=== PATIENT | female | born 1945 | race Caucasian/White ===

== ENCOUNTER 2018-03-29 22:43 | Emergency (ER) | payer OTHER ==
[~2018-03-29] VITALS: Ht 170.2 cm; Wt 86.2 kg
[2018-03-29] MEDS ORDERED: COZAAR 25 MG TA25 M1 PO (22:52)
[2018-03-29] MEDS ORDERED: MIRALAX17 GM PO (22:53)
[2018-03-29] MEDS ORDERED: FISH OIL 1,001000 M2 PO (22:53)
[2018-03-29] MEDS ORDERED: MAGOX 400400 MG PO (22:53)
[2018-03-29] MEDS ORDERED: OMEPRAZOLE 20 M20 M1 PO (22:53)
[2018-03-29] MEDS ORDERED: POTASSIUM20 PO (22:54)
[2018-03-29] MEDS ORDERED: PHENERGAN12.5 M2 RECTAL (22:54)
[2018-03-29] MEDS ORDERED: LASIX 40 MG TAB40 M2 PO (22:55)
[2018-03-29] MEDS ORDERED: REQUIP0.5 MG PO (22:55)
[2018-03-29] MEDS ORDERED: VITAMIN E400 UNIT PO (22:55)
[2018-03-29] MEDS ORDERED: B12INJ IM (22:56)
[2018-03-29] MEDS ORDERED: ASPERCREME1 EACH TOP (22:56)
[2018-03-29] MEDS ORDERED: GABAPENTIN 100100 MG PO (22:57)
[2018-03-29] MEDS ORDERED: OXYCODONE HCL10 MG PO (22:57)
[2018-03-29] MEDS ORDERED: CARDIZEM CD240 MG PO (22:58)
[2018-03-29] MEDS ORDERED: LIPITOR 20 MG T20 M1 (22:58)
[2018-03-29] MEDS ORDERED: COLACE100 MG PO (22:59)
[2018-03-29] MEDS ORDERED: FLORASTOR250 MG PO (22:59)
[2018-03-29] MEDS ORDERED: FOSAMAX 70 MG T70 MG PO (23:00)
[2018-03-29] MEDS ORDERED: XARELTO20 MG PO (23:00)
[2018-03-29] MEDS ORDERED: AUGMENTIN 500-1 EACH PO (23:01)
[2018-03-30] MEDS ORDERED: PERCOCET PO ×2 (00:32→00:36)
[2018-03-30 01:05] VITALS: BP 153/85
[2018-03-30] MEDS ORDERED: FLEXERIL PO (22:27)
== END 2018-03-30 01:05 | disposition home or self-care (01) ==
LOC: M.ERS 22:43
DX: S16.1XXA Strain of muscle, fascia and tendon at neck level, initial encounter (principal); S70.11XA Contusion of right thigh, initial encounter; S09.8XXA Other specified injuries of head, initial encounter; M53.3 Sacrococcygeal disorders, not elsewhere classified; I10 Essential (primary) hypertension; I48.91 Unspecified atrial fibrillation; Z88.8 Allergy status to other drugs, medicaments and biological substances; W01.0XXA Fall on same level from slipping, tripping and stumbling without subsequent striking against object, initial encounter; Y93.89 Activity, other specified; Y92.128 Other place in nursing home as the place of occurrence of the external cause; Y99.8 Other external cause status

== ENCOUNTER 2018-03-30 20:54 | Emergency (ER) | payer OTHER ==
[~2018-03-30] VITALS: Ht 170.2 cm; Wt 90.4 kg
[~2018-03-30 20:54] MED LIST: ASPERCREME1 EACH TOP; AUGMENTIN 500-1 EACH PO; B12INJ IM; CARDIZEM CD240 MG PO; COLACE100 MG PO; COZAAR 25 MG TA25 M1 PO; FISH OIL 1,001000 M2 PO; FLORASTOR250 MG PO; FOSAMAX 70 MG T70 MG PO; GABAPENTIN 100100 MG PO; LASIX 40 MG TAB40 M2 PO; LIPITOR 20 MG T20 M1; MAGOX 400400 MG PO; MIRALAX17 GM PO; OMEPRAZOLE 20 M20 M1 PO; OXYCODONE HCL10 MG PO; PERCOCET PO; PHENERGAN12.5 M2 RECTAL; POTASSIUM20 PO; REQUIP0.5 MG PO; VITAMIN E400 UNIT PO; XARELTO20 MG PO
[2018-03-30] MEDS ORDERED: FLEXERIL PO (22:27)
[2018-03-30 22:48] VITALS: BP 155/83
== END 2018-03-30 22:48 | disposition home or self-care (01) ==
LOC: M.ERS 20:54
DX: S39.012A Strain of muscle, fascia and tendon of lower back, initial encounter (principal); S00.03XA Contusion of scalp, initial encounter; I10 Essential (primary) hypertension; I48.91 Unspecified atrial fibrillation; W18.39XA Other fall on same level, initial encounter; Y93.89 Activity, other specified; Y92.89 Other specified places as the place of occurrence of the external cause; Y99.8 Other external cause status

== ENCOUNTER 2018-04-10 07:35 | Emergency (ER) | payer OTHER ==
[~2018-04-10] VITALS: Ht 170.2 cm; Wt 84.8 kg
[~2018-04-10 07:35] MED LIST changes: +FLEXERIL PO
[2018-04-10] MEDS ORDERED: JUVEN PACKET1 EAC1 PO (07:49)
[2018-04-10] MEDS ORDERED: SEROQUEL 25 MG25 M1 PO (07:50)
[2018-04-10 07:57] LABS: HEMATOCRIT 36.1 % (37.0-47.0); HEMOGLOBIN 11.7 gm/dL (12.0-15.0); MCH 29.3 pg (26.0-34.0); POLYS 60.6 %
[2018-04-10 07:59] LABS: ABSOLUTE EOSINOPHILS 0.2 thou/uL (0.0-0.7); ABSOLUTE MONOCYTES 0.7 thou/uL (0.0-1.2); ABSOLUTE NEUTROPHILS 2.9 thou/uL (1.6-8.1); BASOPHILS 0.6 %; EOSINOPHILS 3.8 %; MCHC 32.3 g/dL (28.0-37.0); MCV 90.6 fL (80.0-100.0); MPV 7.7 fl. (7.2-11.1); NUCLEATED RBCS 0 /100WBC; PLATELET COUNT* 388 thou/uL (150-400); RBC 3.99 mil/uL (4.20-5.00); RDW-CV 14.7 % (10.5-14.5); WBC 4.8 thou/uL (4.0-11.0)
[2018-04-10 08:10] LABS: CALCIUM 9.2 mg/dL (8.5-10.1); CREATININE 0.8 mg/dL (0.6-1.3); INR 1.3; POTASSIUM 3.6 mmol/L (3.5-5.1); PROTIME 13.1 Seconds (9.20-11.50)
[2018-04-10 08:15] LABS: ALBUMIN 2.9 g/dL (3.4-5.0); TOTAL BILIRUBIN 0.4 mg/dL (<0.1-1.0); TOTAL PROTEIN 6.5 g/dL (6.4-8.2)
[2018-04-10 08:54] VITALS: BP 137/69
== END 2018-04-10 08:54 | disposition home or self-care (01) ==
LOC: M.ERS 07:35
PROVIDERS: Family Medicine
DX: M25.551 Pain in right hip (principal); I10 Essential (primary) hypertension; I48.91 Unspecified atrial fibrillation

== ENCOUNTER 2018-12-13 14:21 | Emergency (ER) | payer OTHER ==
[~2018-12-13] VITALS: Ht 170.2 cm; Wt 74.4 kg
[~2018-12-13 14:21] MED LIST changes: +JUVEN PACKET1 EAC1 PO; +SEROQUEL 25 MG25 M1 PO
[2018-12-13] MEDS ORDERED: NUCYNTA50 MG PO (14:37)
[2018-12-13] MEDS ORDERED: VITAMIN D32000 UNIT PO (14:37)
[2018-12-13 15:47] LABS: HEMATOCRIT 38.2 % (37.0-47.0); HEMOGLOBIN 12.7 gm/dL (12.0-15.0); MCH 28.3 pg (26.0-34.0); MCHC 33.1 g/dL (28.0-37.0); MCV 85.4 fL (80.0-100.0); MPV 7.6 fl. (7.2-11.1); NUCLEATED RBCS 0 /100WBC; PLATELET COUNT* 305 thou/uL (150-400); RBC 4.48 mil/uL (4.20-5.00); RDW-CV 15.4 % (10.5-14.5); WBC 6.3 thou/uL (4.0-11.0)
[2018-12-13 15:53] LABS: ANION GAP 11 mmol/L (7-16); BUN 18 mg/dL (7-18); CALCIUM 8.8 mg/dL (8.5-10.1); CHLORIDE 106 mmol/L (98-107); CO2 24 mmol/L (21-32); CREATININE 0.6 mg/dL (0.6-1.3); GLUCOSE 134 mg/dL (70-99); POTASSIUM 3.2 mmol/L (3.5-5.1); SODIUM 141 mmol/L (136-145)
[2018-12-13 16:02] LABS: ALBUMIN 3.4 g/dL (3.4-5.0); ALKALINE PHOSPHATASE 99 U/L (46-116); LIPASE 146 U/L (73-393); SGOT 22 U/L (15-37); SGPT 22 U/L (30-65); TOTAL BILIRUBIN 0.5 mg/dL (<0.1-1.0); TOTAL PROTEIN 6.8 g/dL (6.4-8.2); TROPONIN-I LEVEL <0.06 ng/mL (<0.06)
[2018-12-13] MEDS ORDERED: ZOFRAN ODT4 MG PO (16:21)
[2018-12-13 16:26] LABS: ABSOLUTE LYMPHOCYTES 0.1 thou/uL (0.8-5.3); ABSOLUTE MONOCYTES 0.5 thou/uL (0.0-1.2); ABSOLUTE NEUTROPHILS 5.7 thou/uL (1.6-8.1); PLATELET ESTIMATE ADEQUATE
[2018-12-13 16:44] VITALS: BP 146/77
--- NOTE | 2018-12-14 15:37 | EKG ---
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: Keven SANTOS : 1945 Requested By: Trisha Bateman Order Number: [id number] MD: Vickey Carr Measurements Intervals [place] Rate: 101 P: SD: QRS: -17 QRSD: 102 T: 95 QT: 301 QTc: 391 Interpretive Statements Atrial fibrillation Ventricular premature complex Borderline left axis deviation Borderline repolarization abnormality No previous ECG available for comparison Electronically Signed On 12-14-2018 15:37:30 CDT by Vickey Carr [email or web address] <ELECTRONICALLY SIGNED> By: Vickey Carr MD, [facility] 12/14/18 1537 D: 068 142 Vickey Carr MD, FACC /EPI
== END 2018-12-13 16:45 | disposition home or self-care (01) ==
LOC: M.ERS 14:21
PROVIDERS: Nurse Practitioner Family
DX: R11.2 Nausea with vomiting, unspecified (principal); R19.7 Diarrhea, unspecified; E87.6 Hypokalemia; I10 Essential (primary) hypertension; I48.91 Unspecified atrial fibrillation

== ENCOUNTER 2019-06-05 06:37 | Observation (INO) | payer OTHER ==
[~2019-06-05] VITALS: Ht 170.2 cm; Wt 89.8 kg
[~2019-06-05 06:37] MED LIST changes: +NUCYNTA50 MG PO; +REQUIP 0.25 M0.25 MG PO; -REQUIP0.5 MG PO; +VITAMIN D32000 UNIT PO; +ZOFRAN ODT4 MG PO
[2019-06-05 06:38] VITALS: BP 131/80
[2019-06-05] MEDS ORDERED: ELIQUIS5 MG PO (06:52)
[2019-06-05] MEDS ORDERED: CALCIUM500 MG PO (06:53)
--- NOTE | 2019-06-05 06:59 | NUR ---
THIS NURSE RECEIVED REPORT FROM MONICA QUIROZ. THIS NURSE TO ASSUME PT CARE AT THIS TIME.
[2019-06-05 07:15] LABS: HEMOGLOBIN 7.9 gm/dL (12.0-15.0); NUCLEATED RBCS 0 /100WBC
[2019-06-05 07:16] LABS: HEMATOCRIT 25.5 % (37.0-47.0); MCH 20.9 pg (26.0-34.0); MCHC 31.1 g/dL (28.0-37.0); MCV 67.1 fL (80.0-100.0); PLATELET COUNT* 363 thou/uL (150-400); RDW-CV 19.4 % (10.5-14.5); WBC 7.7 thou/uL (4.0-11.0)
[2019-06-05 07:24] LABS: CALCIUM 8.9 mg/dL (8.5-10.1); CREATININE 0.8 mg/dL (0.6-1.3); POTASSIUM 3.7 mmol/L (3.5-5.1)
[2019-06-05 07:28] LABS: APTT 25.7 Seconds (25.0-31.3); INR 1.1; PROTIME 10.8 Seconds (9.20-11.50)
[2019-06-05 07:34] LABS: ALBUMIN 3.5 g/dL (3.4-5.0); TOTAL BILIRUBIN 0.4 mg/dL (<0.1-1.0)
[2019-06-05 08:04] LABS: ABSOLUTE LYMPHOCYTES 1.1 thou/uL (0.8-5.3); ABSOLUTE NEUTROPHILS 5.6 thou/uL (1.6-8.1); PLATELET ESTIMATE ADEQUATE
[2019-06-05 08:05] LABS: ANISOCYTOSIS 1+; HYPOCHROMASIA 3+; MICROCYTES 3+; POIKILOCYTOSIS 1+
[2019-06-05 08:12] LABS: INFLUENZA A ANTIGEN Negative (Negative); INFLUENZA B ANTIGEN Negative (Negative)
[2019-06-05 08:14] LABS: TARGET CELLS Occasional
--- NOTE | 2019-06-05 08:39 | NUR ---
REPORT GIVEN TO MONICA ARENAS WHO IS TO ASSUME PT CARE INPATIENT NURSE.
[2019-06-05 08:40] VITALS: BP 141/59
--- NOTE | 2019-06-05 08:50 | NUR ---
ADMIT TO 214 TELEPHONE REPORT GIVEN PRIOR TO ARRIVAL PATIENT TO VIA CART SETTLED IN ORIENTED TO AND CALL LIGHT DENIES PAIN
[2019-06-05 09:00] VITALS: BP 139/78
[2019-06-05] MEDS ORDERED: FISH OIL 1,0001 EAC9 PO (09:23)
[2019-06-05] MEDS ORDERED: DILTIAZEM ER180 M2 PO (09:24)
[2019-06-05 10:22] LABS: % SATURATION 3 % (20-39); IRON 13 ug/dL (50-175)
--- NOTE | 2019-06-05 10:22 | EKG ---
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: [place] : 1945 Requested By: Vahe Fernandez Order Number: [id number] MD: Rodger Pond Measurements Intervals [place] Rate: 88 P: [place]: QRS: 12 QRSD: 104 T: 31 QT: 360 QTc: 436 Interpretive Statements Atrial fibrillation Compared to ECG 12/13/2018 14:28:46 Ventricular premature complex(es) no longer present Electronically Signed On 06-05-2019 10:21:51 HAND MITER OPERATOR by Rodger Pond [email or web address] <ELECTRONICALLY SIGNED> By: Rodger Pond MD, [facility] 06/05/19 1021 Rodger Pond MD, [facility] /EPI
[2019-06-05 10:29] LABS: URINE BILIRUBIN NEGATIVE (Negative); URINE BLOOD NEGATIVE (Negative); URINE CLARITY CLEAR; URINE COLOR STRAW; URINE GLUCOSE-RANDOM NEGATIVE (Negative); URINE KETONES NEGATIVE (Negative); URINE LEUKOCYTES-REFLEX NEGATIVE (Negative); URINE NITRITE-REFLEX NEGATIVE (Negative); URINE PROTEIN NEGATIVE (Negative); URINE SPECIFIC GRAVITY <= 1.005 (1.005-1.030); URINE UROBILINOGEN 0.2 E.U./dl (0.2-1.0)
[2019-06-05 13:44] VITALS: BP 131/64
[2019-06-05 17:27] VITALS: BP 131/64
[2019-06-05 20:00] VITALS: BP 138/67
[2019-06-06] VITALS: BP 141/77
--- NOTE | 2019-06-06 01:37 | NUR ---
PT ALERT ORIENTED. PT STATED PAIN IN CHEST AND RIBS FROM COUGHING SO MUCH. PAIN ALSO IN HEAD. PT STATED, "I HAVEN'T HAD ANY SLEEP FOR THE PAST FEW NIGHTS BC OF COUGHING. DR COLLINS NOTIFIED. ORDER FOR PAIN MEDICATION AND COUGH MEDICATION OBTAINED AND GIVEN. TELEMETRY SHOWS AFIB 90S. PT RESTING QUIETLY IN CHAIR. TM
[2019-06-06 04:00] VITALS: BP 140/73
[2019-06-06 04:42] LABS: HEMATOCRIT 24.8 % (37.0-47.0); HEMOGLOBIN 7.7 gm/dL (12.0-15.0); MCH 20.5 pg (26.0-34.0); MCHC 30.9 g/dL (28.0-37.0); MCV 66.3 fL (80.0-100.0); MPV 7.2 fl. (7.2-11.1); RBC 3.74 mil/uL (4.20-5.00); RDW-CV 19.3 % (10.5-14.5); WBC 4.6 thou/uL (4.0-11.0)
[2019-06-06 05:05] LABS: CALCIUM 8.3 mg/dL (8.5-10.1); CREATININE 0.7 mg/dL (0.6-1.3)
--- NOTE | 2019-06-06 07:25 | NUR ---
CHANGE OF SHIFT, BEDSIDE REPORT GIVEN PATIENT SEEN IN BED ASLEEP ASSUMED PATIENT CARE
[2019-06-06 08:00] VITALS: BP 142/75
[2019-06-06] MEDS ORDERED: MEDROL DOSPAK21 TA1 PO (10:45)
[2019-06-06] MEDS ORDERED: FEOSOL325 M1 PO (10:45)
[2019-06-06 11:30] VITALS: BP 140/71
[2019-06-06] MEDS ORDERED: PROAIR HFA8.5 GM INH (12:15)
[2019-06-06] MEDS ORDERED: CEFDINIR300 MG PO (12:15)
[2019-06-06 16:00] VITALS: BP 134/67
--- NOTE | 2019-06-06 19:00 | NUR ---
patient status change ms transferred to [facility] rm 107 report given to jazmyne vargas patient assisted via [facility] good condition with personal belongings family notified of rm change
[2019-06-06 20:00] VITALS: BP 154/79
--- NOTE | 2019-06-07 02:27 | NUR ---
PT HAS SLEPT WELL WITHOUT COMPLAINTS SINCE ARRIVING TO FLOOR. UP IN RECLINER FOR COMFORT, CHAIR ALARM ON FOR SAFETY. ABLE TO USE CALL LITE AND MAKE NEEDS KNOWN. UP WITH SBA AND CANE TO BR TO VOID WITHOUT DIFFICULTY. ROOM AIR SAT 97%. OCC CLAIM CLERK COUGH HEARD. RT TX GIVEN ORDERED. LFA SL. ANTICIPATING DISCHARGE HOME TOMORROW. REPORT GIVEN TO SUSANNE ANDERSON WHO WILL ASSUME CARE AT THIS TIME.
[2019-06-07 04:06] LABS: BASOPHILS 0.1 %; HEMOGLOBIN 7.6 gm/dL (12.0-15.0); NUCLEATED RBCS 1 /100WBC
[2019-06-07 04:09] LABS: ABSOLUTE LYMPHOCYTES 0.1 thou/uL (0.8-5.3); ABSOLUTE MONOCYTES 0.6 thou/uL (0.0-1.2); ABSOLUTE NEUTROPHILS 5.6 thou/uL (1.6-8.1); HEMATOCRIT 24.8 % (37.0-47.0); LYMPHOCYTES 2.3 %; MCH 20.5 pg (26.0-34.0); MCHC 30.7 g/dL (28.0-37.0); MCV 66.9 fL (80.0-100.0); MONOCYTES 9.4 %; MPV 7.2 fl. (7.2-11.1); PLATELET COUNT* 375 thou/uL (150-400); POLYS 88.2 %; RBC 3.71 mil/uL (4.20-5.00); RDW-CV 19.8 % (10.5-14.5); WBC 6.3 thou/uL (4.0-11.0)
[2019-06-07 07:30] VITALS: BP 121/69
[2019-06-07 10:15] VITALS: BP 121/69
--- NOTE | 2019-06-07 14:43 | NUR ---
PT DISCHARGED TO HOME AT 1430 WITH AND NURSING STAFF BY CAB. IV OUT. PT STABLE. SCRIPTS E FAXED TO PHARMACY. PERSONAL BELONGINGS SENT WITH PT.
--- NOTE | 2019-06-07 16:46 | 2DMMODE ---
[place] [address] 2 D/M-MODE ECHOCARDIOGRAM Name: JANIEDGARDALEXANDREAALFREDITO Jimmy Room: [address] Alvarado Weber#: [id number] Admission: 06/05/19 Attend Phys: Vale Berg, Discharge: 06/07/19 Date of : 43 Date of Service: 06/07/19 1646 Report #: [id number] THIS REPORT FOR: //name// APPROVED REPORT Study performed: 06/07/2019 10:00:08 EXAM: Comprehensive 2D, Doppler, and color-flow Echocardiogram Patient Location: In-Patient Room #: [facility] Status: routine BSA: 2.01 HR: 99 bpm BP: 121/69 mmHg Rhythm: Atrial Fibrillation Other Information Study Quality: Good Indications Dyspnea 2D Dimensions IVSd: 15.02 (7-11mm) LVOT Diam: 20.14 (18-24mm) LVDd: 45.46 mm PWd: 12.06 (7-11mm) Ascending Ao: 36.17 (22-36mm) LVDs: 28.94 (25-40mm) Aortic Root: 36.26 mm Volumes Left Atrial Volume (Systole) LA ESV Index: 62.60 mL/m2 Aortic Valve AoV Peak Yannick.: 1.57 m/s AO Peak Gr.: 9.87 mmHg LVOT Max P.04 mmHg AO Mean Gr.: 5.83 mmHg LVOT Mean P.37 mmHg LVOT Max V: 1.00 m/s AO V2 VTI: 30.87 cm LVOT Mean V: 0.73 m/s BARBARA (VTI): 2.18 cm2 LVOT V1 VTI: 21.13 cm Mitral Valve MV Decel. Time: 170.00 ms MV PHT: 49.30 ms MVA (PHT): 4.46 [place] [address] 2 D/M-MODE ECHOCARDIOGRAM Name: JANIALFREDITO MCCLAIN Jimmy [address]: [address]#: [id number] Admission: 06/05/19 Attend Phys: Vale Berg, Discharge: 06/07/19 Date of : 43 Date of Service: 06/07/19 1646 Report #: [id number] TDI Medial E' Yannick.: 0.14 m/s Lateral E' Yannick.: 0.17 m/s Pulmonary Valve PV Peak Yannick.: 0.93 m/s PV Peak Gr.: 3.45 mmHg Tricuspid Valve RAP Estimate: 5.00 mmHg TR Peak Gr.: 36.55 mmHg RVSP: 41.00 mmHg PA Pressure: 41.00 mmHg Left Ventricle The left ventricle is normal size. There is normal LV segmental wall motion. There is normal left ventricular wall thickness. Left ventricular systolic function is normal. The left ventricular ejection fraction is within the normal range. LVEF is 60%. This study is not technically sufficient to allow evaluation of the LV diastolic function due to atrial fibrillation. Right Ventricle The right ventricle is normal size. The right ventricular systolic function is normal. Atria Left atrium is moderately dilated. Right atrium is mildly dilated. Aortic Valve Mild aortic valve sclerosis. No aortic regurgitation is present. There is no aortic valvular stenosis. Mitral Valve The mitral valve is normal in structure. Mild mitral regurgitation. No evidence of mitral valve stenosis. Tricuspid Valve The tricuspid valve is normal in structure. Trace tricuspid regurgitation Mild pulmonary hypertension. Pulmonic Valve The pulmonary valve is normal in structure. Trace pulmonic regurgitation[place] [address] 2 D/M-MODE ECHOCARDIOGRAM Name: JANIEDGARDALEXANDREAALFREDITO Jimmy Room: [address]#: [id number] Admission: 06/05/19 Attend Phys: Vale Berg, Discharge: 06/07/19 Date of : 43 Date of Service: 06/07/19 1646 Report #: [id number] The aortic root is normal in size. IVC is normal in size and collapses >50% with inspiration. Pericardium There is no pericardial effusion. <Conclusion> The left ventricle is normal size. There is normal left ventricular wall thickness. Left ventricular systolic function is normal. The left ventricular ejection fraction is within the normal range. LVEF is 60%. This study is not technically sufficient to allow evaluation of the LV diastolic function due to atrial fibrillation. The right ventricle is normal size. Left atrium is moderately dilated. Right atrium is mildly dilated. Mild aortic valve sclerosis. No aortic regurgitation is present. There is no aortic valvular stenosis. The mitral valve is normal in structure. Mild mitral regurgitation. The tricuspid valve is normal in structure. Trace tricuspid regurgitation Mild pulmonary hypertension. IVC is normal in size and collapses >50% with inspiration. There is no pericardial effusion. There is normal LV segmental wall motion. <ELECTRONICALLY SIGNED> By: Vickey Carr MD, FACC 06/07/19 164 45 45 Vickey Carr MD, FACC /INF
[2019-06-07] MEDS ORDERED: IPRAT-ALBUT 0.5-3 ML INH (20:39)
== END 2019-06-07 15:06 | disposition home or self-care (01) ==
LOC: M.ERS 06:37 → M.TBA-ER 07:53 → M.2W 07:53 → M.ORTHSURG 07:53 → M.2W 08:47 → M.ORTHSURG 06-06 19:00
PROVIDERS: Emergency Medicine; Family Medicine; ADMIT Internal Medicine
DX: J80 Acute respiratory distress syndrome (principal); I48.20 Chronic atrial fibrillation, unspecified; D50.9 Iron deficiency anemia, unspecified; E87.6 Hypokalemia; I10 Essential (primary) hypertension; R79.89 Other specified abnormal findings of blood chemistry; J98.01 Acute bronchospasm; Z79.01 Long term (current) use of anticoagulants

== ENCOUNTER → 2019-07-26 | Outpatient (CLI) | payer MEDICARE ==
[~2019-07-26] MED LIST changes: +CALCIUM500 MG PO; +CEFDINIR300 MG PO; +DILTIAZEM ER180 M2 PO; +ELIQUIS5 MG PO; +FEOSOL325 M1 PO; +FISH OIL 1,0001 EAC9 PO; +IPRAT-ALBUT 0.5-3 ML INH; +MEDROL DOSPAK21 TA1 PO; +PROAIR HFA8.5 GM INH
== END ==
LOC: M.WC 07:22
DX: S01.01XA Laceration without foreign body of scalp, initial encounter (principal); S01.80XA Unspecified open wound of other part of head, initial encounter; E78.00 Pure hypercholesterolemia, unspecified; I10 Essential (primary) hypertension; I48.91 Unspecified atrial fibrillation; Z96.612 Presence of left artificial shoulder joint; W19.XXXA Unspecified fall, initial encounter; Y93.89 Activity, other specified; Y92.89 Other specified places as the place of occurrence of the external cause; Y99.8 Other external cause status

== ENCOUNTER → 2019-08-02 | Outpatient (CLI) | payer MEDICARE | LOC: M.WC 01:54 | DX: S01.01XD Laceration without foreign body of scalp, subsequent encounter (principal); E78.00 Pure hypercholesterolemia, unspecified; I10 Essential (primary) hypertension; Z96.612 Presence of left artificial shoulder joint; I48.91 Unspecified atrial fibrillation; W19.XXXD Unspecified fall, subsequent encounter ==

== ENCOUNTER → 2019-08-09 | Outpatient (CLI) | payer MEDICARE | LOC: M.WC 02:19 | DX: S01.01XD Laceration without foreign body of scalp, subsequent encounter (principal); E78.00 Pure hypercholesterolemia, unspecified; I10 Essential (primary) hypertension; I48.91 Unspecified atrial fibrillation; Z96.612 Presence of left artificial shoulder joint; W19.XXXD Unspecified fall, subsequent encounter ==

== ENCOUNTER → 2019-08-16 | Outpatient (CLI) | payer MEDICARE | LOC: M.WC 01:08 | DX: S01.01XD Laceration without foreign body of scalp, subsequent encounter (principal); E78.00 Pure hypercholesterolemia, unspecified; I10 Essential (primary) hypertension; I48.91 Unspecified atrial fibrillation; Z96.612 Presence of left artificial shoulder joint; W19.XXXD Unspecified fall, subsequent encounter ==

== ENCOUNTER 2019-11-12 08:31 | Emergency (ER) | payer MEDICARE ==
[~2019-11-12] VITALS: Ht 170.2 cm; Wt 81.7 kg
[2019-11-12 09:55] VITALS: BP 144/77
== END 2019-11-12 10:05 | disposition home or self-care (01) ==
LOC: M.ERS 08:31
DX: R60.0 Localized edema (principal); I10 Essential (primary) hypertension; I48.91 Unspecified atrial fibrillation

== ENCOUNTER → 2019-12-14 | Outpatient (CLI) | payer MEDICARE ==
[~2019-12-14] MED LIST changes: +NORFLEX100 MG PO; +OXYCODONE HCL 55 MG PO; +PAIN RELIEVER500 MG PO; -VITAMIN D32000 UNIT PO; +VITAMIN D325 MCG PO; +Vitamin D3 PO
== END ==
LOC: M.MRI 06:52
PROVIDERS: ATTEND Orthopaedic Surgery
DX: M84.452A Pathological fracture, left femur, initial encounter for fracture (principal)

== ENCOUNTER 2019-12-18 19:52 | Inpatient (IN) | payer MEDICARE ==
[~2019-12-18] VITALS: Ht 170.2 cm; Wt 96.3 kg
[~2019-12-18 19:52] MED LIST changes: -NORFLEX100 MG PO; -OXYCODONE HCL 55 MG PO; -PAIN RELIEVER500 MG PO; -VITAMIN D325 MCG PO
[2019-12-18 20:05] VITALS: BP 142/83
[2019-12-18 20:25] LABS: ABSOLUTE EOSINOPHILS 0.1 thou/uL (0.0-0.7); ABSOLUTE LYMPHOCYTES 1.2 thou/uL (0.8-5.3); ABSOLUTE NEUTROPHILS 3.4 thou/uL (1.6-8.1); BASOPHILS 0.6 %; EOSINOPHILS 1.6 %; HEMATOCRIT 38.9 % (37.0-47.0); HEMOGLOBIN 12.9 gm/dL (12.0-15.0); LYMPHOCYTES 20.1 %; MCH 31.4 pg (26.0-34.0); MCHC 33.2 g/dL (28.0-37.0); MCV 94.7 fL (80.0-100.0); MONOCYTES 18.2 %; MPV 7.5 fl. (7.2-11.1); NUCLEATED RBCS 0 /100WBC; PLATELET COUNT* 340 thou/uL (150-400); POLYS 59.5 %; RBC 4.11 mil/uL (4.20-5.00); RDW-CV 14.9 % (10.5-14.5); WBC 5.7 thou/uL (4.0-11.0)
[2019-12-18 20:33] LABS: PROTIME 10.5 Seconds (9.20-11.50)
[2019-12-18 20:35] LABS: CALCIUM 8.9 mg/dL (8.5-10.1); POTASSIUM 3.8 mmol/L (3.5-5.1)
[2019-12-18 20:39] LABS: ALBUMIN 3.3 g/dL (3.4-5.0); TOTAL BILIRUBIN 0.2 mg/dL (<0.1-1.0)
[2019-12-18 21:15] LABS: URINE BILIRUBIN NEGATIVE (Negative); URINE BLOOD NEGATIVE (Negative); URINE CLARITY CLEAR; URINE COLOR YELLOW; URINE GLUCOSE-RANDOM NEGATIVE (Negative); URINE KETONES NEGATIVE (Negative); URINE LEUKOCYTES-REFLEX TRACE (Negative); URINE NITRITE-REFLEX NEGATIVE (Negative); URINE PROTEIN NEGATIVE (Negative); URINE SPECIFIC GRAVITY 1.025 (1.005-1.030); URINE UROBILINOGEN 0.2 E.U./dl (0.2-1.0)
[2019-12-18 21:30] LABS: SQUAMOUS 0-3 Few /LPF (0-3)
[2019-12-18 21:31] LABS: BACTERIA-REFLEX None Seen /HPF (None Seen); CASTS None Seen /LPF (None Seen); CRYSTALS None Seen /LPF (None Seen); URINE RBC None Seen /HPF (0-2); URINE WBC-REFLEX 0-5 Rare /HPF (0-5)
[2019-12-18 22:00] VITALS: BP 118/71
[2019-12-18 23:00] VITALS: BP 140/62
[2019-12-19 08:35] VITALS: BP 153/61
--- NOTE | 2019-12-19 10:23 | EKG ---
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: [place] : 1945 Requested By: Tiffanie Cornejo Order Number: [id number] MD: Eleazar Parker Measurements Intervals [place] Rate: 83 P: CT: QRS: -9 QRSD: 109 T: 36 QT: 410 QTc: 482 Interpretive Statements Atrial fibrillation Low voltage, extremity and precordial leads Compared to ECG 06/05/2019 06:40:25 Low QRS voltage now present Electronically Signed On 12-19-2019 10:22:20 CDT by Eleazar Parker [email or web address] <ELECTRONICALLY SIGNED> By: Ryan Parker MD, [facility] 12/19/191021 58 58 Ryan Parker MD, [facility] /EPI
[2019-12-19 10:56] VITALS: BP 153/61
[2019-12-19 19:23] VITALS: BP 139/74
[2019-12-19 20:30] VITALS: BP 126/60
[2019-12-20] VITALS: BP 130/64
[2019-12-20 07:56] VITALS: BP 118/69
[2019-12-20 09:24] LABS: HEMATOCRIT 30.9 % (37.0-47.0); MCH 31.6 pg (26.0-34.0); MCHC 33.6 g/dL (28.0-37.0); MCV 93.9 fL (80.0-100.0); MPV 7.8 fl. (7.2-11.1); RBC 3.28 mil/uL (4.20-5.00); RDW-CV 15.2 % (10.5-14.5); WBC 9.3 thou/uL (4.0-11.0)
[2019-12-20 09:27] LABS: HEMOGLOBIN 10.4 gm/dL (12.0-15.0)
[2019-12-20 09:39] LABS: ALBUMIN 2.7 g/dL (3.4-5.0); CALCIUM 8.2 mg/dL (8.5-10.1); CREATININE 1.3 mg/dL (0.6-1.3); MAGNESIUM 1.8 mg/dL (1.8-2.4); POTASSIUM 4.8 mmol/L (3.5-5.1); TOTAL BILIRUBIN 0.6 mg/dL (<0.1-1.0); TOTAL PROTEIN 5.8 g/dL (6.4-8.2)
[2019-12-20 20:30] VITALS: BP 93/45
[2019-12-21] VITALS (9 sets, daily range): BP systolic 100–127; BP diastolic 40–68
[2019-12-21 02:07] LABS: HEMATOCRIT 33.8 % (37.0-47.0); HEMOGLOBIN 11.1 gm/dL (12.0-15.0); MCH 31.9 pg (26.0-34.0); MCHC 32.8 g/dL (28.0-37.0); MCV 97.1 fL (80.0-100.0); MPV 7.8 fl. (7.2-11.1); RBC 3.48 mil/uL (4.20-5.00); RDW-CV 14.9 % (10.5-14.5); WBC 11.5 thou/uL (4.0-11.0)
[2019-12-21 02:20] LABS: CALCIUM 8.9 mg/dL (8.5-10.1); POTASSIUM 5.2 mmol/L (3.5-5.1)
[2019-12-21 02:21] LABS: CREATININE 2.5 mg/dL (0.6-1.3)
[2019-12-21 02:25] LABS: ALBUMIN 2.9 g/dL (3.4-5.0); TOTAL BILIRUBIN 0.4 mg/dL (<0.1-1.0); TOTAL PROTEIN 6.5 g/dL (6.4-8.2)
[2019-12-21 02:42] LABS: APTT 32.4 Seconds (25.0-31.3); INR 1.1; PROTIME 11.2 Seconds (9.20-11.50)
[2019-12-21 08:45] LABS: CALCIUM 8.6 mg/dL (8.5-10.1); CREATININE 2.3 mg/dL (0.6-1.3); POTASSIUM 5.2 mmol/L (3.5-5.1)
[2019-12-21 09:16] LABS: BE -4.1 mmol/L (-2 to +3); PO2 98.6 mmHg (75.0-100.0)
[2019-12-21 09:20] LABS: PCO2 58.1 mmHg (35.0-45.0); pH 7.231 (7.340-7.450)
[2019-12-22] VITALS: BP 121/65
[2019-12-22 03:55] LABS: BE -1.7 mmol/L (-2 to +3); PCO2 44.7 mmHg (35.0-45.0); PO2 96.6 mmHg (75.0-100.0); pH 7.349 (7.340-7.450)
[2019-12-22 04:00] VITALS: BP 121/76
[2019-12-22 05:49] LABS: ABSOLUTE EOSINOPHILS 0.1 thou/uL (0.0-0.7); ABSOLUTE LYMPHOCYTES 0.6 thou/uL (0.8-5.3); ABSOLUTE MONOCYTES 1.2 thou/uL (0.0-1.2); BASOPHILS 0.4 %; EOSINOPHILS 1.8 %; HEMATOCRIT 26.5 % (37.0-47.0); LYMPHOCYTES 9.9 %; MCH 32.1 pg (26.0-34.0); MCHC 33.3 g/dL (28.0-37.0); MCV 96.5 fL (80.0-100.0); MONOCYTES 19.6 %; MPV 7.8 fl. (7.2-11.1); NUCLEATED RBCS 0 /100WBC; POLYS 68.3 %; RBC 2.75 mil/uL (4.20-5.00); WBC 5.9 thou/uL (4.0-11.0)
[2019-12-22 05:59] LABS: HEMOGLOBIN 8.8 gm/dL (12.0-15.0); PLATELET COUNT* 220 thou/uL (150-400)
[2019-12-22 06:08] LABS: ALBUMIN 2.2 g/dL (3.4-5.0); CALCIUM 8.2 mg/dL (8.5-10.1); TOTAL BILIRUBIN 0.4 mg/dL (<0.1-1.0); TOTAL PROTEIN 5.1 g/dL (6.4-8.2)
[2019-12-22 06:13] LABS: CREATININE 1.2 mg/dL (0.6-1.3); POTASSIUM 4.2 mmol/L (3.5-5.1)
[2019-12-22 08:51] VITALS: BP 157/99
[2019-12-22 12:31] VITALS: BP 130/64
[2019-12-23 09:23] VITALS: BP 131/72
[2019-12-23 12:00] VITALS: BP 101/56
[2019-12-23 15:49] VITALS: BP 159/65
--- NOTE | 2019-12-23 16:26 | OP ---
[address] [place] [address] OPERATIVE REPORT Name: ALFREDITO CARR Room: [address] IN .R.#: [id number] Admission: 12/18/19 Attend Phys: Hillary Palomino Discharge: Date of : 43 Report #: [id number] THIS REPORT FOR: //name// cc: Sandy Yanez MD, Pamela MD ~ THIS REPORT FOR: //name// CC: Hillary Walker DICTATED BY: Jacob Morrison DO DATE OF SERVICE: 12/19/2019 PREOPERATIVE DIAGNOSIS: Left femur pathologic subtrochanteric fracture, displaced. POSTOPERATIVE DIAGNOSIS: Left femur pathologic subtrochanteric fracture, displaced. PROCEDURE PERFORMED: Open reduction and intramedullary fixation of left femur subtrochanteric fracture. SURGEON: Thomas Pickard DO FOAM CASTER: Jacob Morrison DO SECOND ELECTRIC METER REPAIRER HELPER: Jonathan Espinal DO THIRD ELECTRIC METER REPAIRER HELPER: Prince Yanez DO ANESTHESIA: General. ESTIMATED BLOOD LOSS: 200 mL. COMPLICATIONS: None. DISPOSITION: Stable to PACU. ORTHOPEDIC IMPLANTS: [employer] gamma 3 cephalomedullary nail system with the following components: 1. Size 11 x 360 mm x 125 degree long nail. 2. A 95-mm lag screw. 3. Distal interlocking screw. INDICATIONS FOR PROCEDURE: The patient is a pleasant 74-year-old female who is [address] [place] [address] OPERATIVE REPORT Name: ALFREDITO CARR Room: [address] IN ..#: [id number] Admission: 12/18/19 Attend Phys: Hillary Palomino Discharge: Date of : 43 Report #: [id number] known to our practice who presented to the Emergency Department on 12/19/2019 with injury to the left thigh. She felt a pop in her hip and subsequently sustained a fall. She immediately noted severe pain and was unable to ambulate. She was brought to the ER by EMS. X-rays were obtained, which demonstrated a pathologic proximal femur fracture. It is noteworthy that the patient was previously seen for this condition and was scheduled for prophylactic nail fixation. In the interim, she was instructed to maintain a nonweightbearing status in order to protect the femur and prevent pathologic fracture. The patient does have a long history of bisphosphonate use and had a subtrochanteric cortical thickening, which is a known possibility with bisphosphonate use. We discussed further treatment options with the patient and recommended surgical fixation. Risks, benefits, complications and alternatives were discussed with the patient in detail. Risks include but not limited to continued pain, bleeding, DVT/PE, infection, nonunion, malunion, complications of anesthesia and even . The patient expressed understanding and wished to proceed. DESCRIPTION OF PROCEDURE: The patient was transferred to the operating suite and placed on the operating table in supine position. She was given benefit of general anesthesia. Left hip was then prepped and draped in the usual sterile fashion. Timeout was taken to confirm the appropriate patient identification, operative site and procedure to be performed. All in the room were in agreement with the timeout. Procedure began by performing a skin incision at the lateral femur overlying the fracture site. A combination of a ball spike pusher as well as a bone hook were used to perform a manual reduction of the fracture. A scalpel was then used to perform an incision just proximal to the tip of the greater trochanter. A guide pin was then inserted at the tip of the greater trochanter in the usual position. C-arm fluoroscopy was used to confirm appropriate pin position as well as adequate reduction of her fracture. The opening reamer was then used to open the cortex of the proximal greater trochanter. The ball-tipped guidewire was then passed under fluoroscopy to the appropriate position and the distal femur. The appropriate length of nail was measured. The femoral canal was then sequentially reamed. The intramedullary nail was then passed along the guidewire. During all these processes, the reduction was held manually with the bone hook and ball spike pusher. Once the nail was passed to the appropriate position, C-arm images were obtained, which showed a good reduction of her fracture site and good positioning of our nail. The guide was then positioned for a lag screw. A guide pin was drilled into the femoral neck and into the femoral head. C-arm images were obtained, which demonstrated appropriate position of the guide pin in the femoral neck and femoral head. The path of our lag screw was then reamed over the guide pin. The lag screw was then measured. Final lag screw was then placed into position. The distal interlocking screw was then positioned using perfect circles technique. It was measured to an appropriate length and the final screw was placed. Final images were obtained, which demonstrated maintained anatomic reduction of her fracture as well as appropriate positioning of our orthopedic hardware. The wounds were thoroughly irrigated. The IT band at both the [address] [place] [address] OPERATIVE REPORT Name: ALFREDITO CARR Room: 231-P ADM IN M.R.#: [id number] Admission: 12/18/19 Attend Phys: Hillary Palomino Discharge: Date of : 43 Report #: [id number] proximal incisions was closed using a #1 Vicryl. Subcutaneous tissue was then closed using 2-0 Vicryl. Skin closure was performed using lupillo. Sterile dressings were applied. The patient was transferred to PACU in stable condition. <ELECTRONICALLY SIGNED> By: Thomas Pickard DO 12/23/19 1626 1732 [id number] Pickard DO /nt
[2019-12-23 20:10] VITALS: BP 132/82
[2019-12-24] VITALS (7 sets, daily range): BP systolic 113–163; BP diastolic 71–92
[2019-12-24 05:34] LABS: CALCIUM 8.3 mg/dL (8.5-10.1); CREATININE 0.6 mg/dL (0.6-1.3); POTASSIUM 4.3 mmol/L (3.5-5.1)
[2019-12-24 05:35] LABS: HEMATOCRIT 27.6 % (37.0-47.0); HEMOGLOBIN 9.4 gm/dL (12.0-15.0); MCH 32.2 pg (26.0-34.0); MCV 94.6 fL (80.0-100.0); MPV 7.6 fl. (7.2-11.1); NUCLEATED RBCS 0 /100WBC; PLATELET COUNT* 288 thou/uL (150-400); RBC 2.92 mil/uL (4.20-5.00); RDW-CV 14.7 % (10.5-14.5); WBC 5.2 thou/uL (4.0-11.0)
[2019-12-24 06:56] LABS: ABSOLUTE EOSINOPHILS 0.2 thou/uL (0.0-0.7); ABSOLUTE LYMPHOCYTES 0.8 thou/uL (0.8-5.3); ABSOLUTE MONOCYTES 0.9 thou/uL (0.0-1.2); ABSOLUTE NEUTROPHILS 3.3 thou/uL (1.6-8.1); PLATELET ESTIMATE ADEQUATE
[2019-12-24 06:57] LABS: ANISOCYTOSIS 1+; POIKILOCYTOSIS 1+
[2019-12-25 03:48] VITALS: BP 148/82
[2019-12-25] MEDS ORDERED: OXYCODONE HCL 55 MG PO (10:57)
[2019-12-25 12:00] VITALS: BP 155/79
[2019-12-25 15:48] VITALS: BP 123/60
[2019-12-25 20:00] VITALS: BP 151/81
[2019-12-26] VITALS: BP 141/86
[2019-12-26 04:00] VITALS: BP 147/84
[2019-12-26 08:00] VITALS: BP 151/86
[2019-12-26 13:49] VITALS: BP 152/80
[2019-12-26 17:34] VITALS: BP 148/80
[2019-12-26 20:00] VITALS: BP 120/88
[2019-12-27 00:11] VITALS: BP 151/88
[2019-12-27 04:30] VITALS: BP 143/75
[2019-12-27 08:00] VITALS: BP 144/85
[2019-12-27 11:30] VITALS: BP 131/62
[2019-12-27 16:00] VITALS: BP 108/48
[2019-12-27 19:40] VITALS: BP 125/64
[2019-12-28 00:26] VITALS: BP 138/77
[2019-12-28 04:00] VITALS: BP 99/72
[2019-12-28 08:59] VITALS: BP 140/58
[2019-12-28 11:54] VITALS: BP 110/51
[2019-12-29] VITALS: BP 125/67
[2019-12-29 04:00] VITALS: BP 141/76
[2019-12-29 07:30] VITALS: BP 141/82
[2019-12-29 12:00] VITALS: BP 115/58
[2019-12-29 16:00] VITALS: BP 134/65
[2019-12-29 20:20] VITALS: BP 144/68
[2019-12-30 07:40] VITALS: BP 133/76
[2019-12-30 20:50] VITALS: BP 154/73
[2019-12-31 04:30] LABS: ABSOLUTE BASOPHILS 0.1 thou/uL (0.0-0.2); ABSOLUTE EOSINOPHILS 0.2 thou/uL (0.0-0.7); ABSOLUTE LYMPHOCYTES 1.2 thou/uL (0.8-5.3); ABSOLUTE NEUTROPHILS 4.7 thou/uL (1.6-8.1); BASOPHILS 0.7 %; HEMATOCRIT 28.6 % (37.0-47.0); HEMOGLOBIN 9.6 gm/dL (12.0-15.0); LYMPHOCYTES 16.3 %; MCH 31.7 pg (26.0-34.0); MCHC 33.5 g/dL (28.0-37.0); MCV 94.4 fL (80.0-100.0); MONOCYTES 13.7 %; MPV 7.5 fl. (7.2-11.1); NUCLEATED RBCS 0 /100WBC; PLATELET COUNT* 438 thou/uL (150-400); POLYS 66.3 %; RBC 3.03 mil/uL (4.20-5.00); RDW-CV 15.5 % (10.5-14.5); WBC 7.2 thou/uL (4.0-11.0)
[2019-12-31 04:56] LABS: CALCIUM 8.3 mg/dL (8.5-10.1); CREATININE 0.7 mg/dL (0.6-1.3); POTASSIUM 3.9 mmol/L (3.5-5.1)
[2019-12-31 08:38] VITALS: BP 130/72
[2019-12-31 15:54] VITALS: BP 133/68
[2019-12-31 20:20] VITALS: BP 144/77
[2020-01-01 08:00] VITALS: BP 134/70
[2020-01-01 16:00] VITALS: BP 136/71
[2020-01-01 19:30] VITALS: BP 111/65
[2020-01-02 08:00] VITALS: BP 142/75
[2020-01-02 16:22] VITALS: BP 111/63
[2020-01-02 20:00] VITALS: BP 127/65
[2020-01-03 07:26] VITALS: BP 151/78
[2020-01-03 17:08] VITALS: BP 99/52
[2020-01-03 20:10] VITALS: BP 138/72
[2020-01-04 07:36] VITALS: BP 138/75
[2020-01-04 17:32] VITALS: BP 134/67
[2020-01-04 20:00] VITALS: BP 137/74
[2020-01-05] VITALS: BP 151/74
[2020-01-05 05:23] LABS: ABSOLUTE BASOPHILS 0.1 thou/uL (0.0-0.2); ABSOLUTE EOSINOPHILS 0.2 thou/uL (0.0-0.7); ABSOLUTE LYMPHOCYTES 1.4 thou/uL (0.8-5.3); ABSOLUTE MONOCYTES 0.6 thou/uL (0.0-1.2); ABSOLUTE NEUTROPHILS 2.6 thou/uL (1.6-8.1); BASOPHILS 1.4 %; HEMOGLOBIN 10.5 gm/dL (12.0-15.0); LYMPHOCYTES 27.8 %; MCH 30.8 pg (26.0-34.0); MCHC 32.9 g/dL (28.0-37.0); MCV 93.6 fL (80.0-100.0); MONOCYTES 12.3 %; MPV 7.1 fl. (7.2-11.1); NUCLEATED RBCS 0 /100WBC; PLATELET COUNT* 615 thou/uL (150-400); POLYS 53.5 %; RBC 3.42 mil/uL (4.20-5.00); RDW-CV 15.3 % (10.5-14.5); WBC 4.9 thou/uL (4.0-11.0)
[2020-01-05 05:34] LABS: ALBUMIN 2.5 g/dL (3.4-5.0); CALCIUM 8.4 mg/dL (8.5-10.1); CREATININE 0.7 mg/dL (0.6-1.3); POTASSIUM 3.9 mmol/L (3.5-5.1); TOTAL BILIRUBIN 0.4 mg/dL (<0.1-1.0); TOTAL PROTEIN 5.9 g/dL (6.4-8.2)
[2020-01-05 09:32] VITALS: BP 123/69
[2020-01-05 16:00] VITALS: BP 136/80
[2020-01-05 20:00] VITALS: BP 138/69
[2020-01-06 20:01] VITALS: BP 145/79
[2020-01-07 07:50] VITALS: BP 105/66
[2020-01-07 20:41] VITALS: BP 144/79
[2020-01-08 07:40] VITALS: BP 145/78
[2020-01-08 15:26] VITALS: BP 119/62
[2020-01-08 19:30] VITALS: BP 145/70
[2020-01-09 07:30] VITALS: BP 147/83
[2020-01-09 08:08] VITALS: BP 193/62
[2020-01-09 15:48] VITALS: BP 143/78
[2020-01-09 20:00] VITALS: BP 152/83
[2020-01-10 08:06] VITALS: BP 145/84
[2020-01-10 16:30] VITALS: BP 155/79
[2020-01-11] VITALS: BP 140/79
[2020-01-11 09:00] VITALS: BP 129/55
[2020-01-11 11:16] VITALS: BP 129/55
[2020-01-11 13:13] VITALS: BP 129/55
[2020-01-11] MEDS ORDERED: NORFLEX100 MG PO (13:15)
[2020-01-11] MEDS ORDERED: OXYCODONE HCL 55 MG PO (13:15)
[2020-01-11] MEDS ORDERED: PAIN RELIEVER500 MG PO (13:15)
[2020-01-11] MEDS ORDERED: VITAMIN D325 MCG PO (13:15)
[2020-01-11 13:27] VITALS: BP 129/55
== END 2020-01-11 16:35 | disposition home health service (06) | DRG 480 ==
LOC: M.ERS 19:52 → M.ORTHSURG 20:58 → M.2W 20:58 → M.TBA-ER 20:58 → M.3W 22:16 → M.ORTHSURG 12-19 13:48 → M.2W 12-21 12:21 → M.ORTHSURG 12-29 17:46
PROVIDERS: Emergency Medicine; Internal Medicine; Nurse Practitioner; ADMIT Family Medicine; ATTEND Family Medicine
PROC: 0QS706Z Reposition Left Upper Femur with Intramedullary Internal Fixation Device, Open Approach (ICD-10-PCS; 2019-12-19)
PROC: 5A09357 Assistance with Respiratory Ventilation, Less than 24 Consecutive Hours, Continuous Positive Airway Pressure (ICD-10-PCS; principal; 2019-12-21)
PROC: 5A09357 Assistance with Respiratory Ventilation, Less than 24 Consecutive Hours, Continuous Positive Airway Pressure (ICD-10-PCS; 2019-12-22)
DX: M80.052A Age-related osteoporosis with current pathological fracture, left femur, initial encounter for fracture (principal); J96.01 Acute respiratory failure with hypoxia; J96.02 Acute respiratory failure with hypercapnia; J69.0 Pneumonitis due to inhalation of food and vomit; N17.9 Acute kidney failure, unspecified; D68.59 Other primary thrombophilia; E87.5 Hyperkalemia; I10 Essential (primary) hypertension; E66.9 Obesity, unspecified; I48.91 Unspecified atrial fibrillation; Z79.899 Other long term (current) drug therapy; Z79.01 Long term (current) use of anticoagulants; Z68.33 Body mass index [BMI] 33.0-33.9, adult

== ENCOUNTER 2020-09-15 12:48 | Inpatient (IN) | payer MEDICARE ==
[~2020-09-15] VITALS: Ht 170.2 cm; Wt 97.1 kg
[~2020-09-15 12:48] MED LIST changes: +NORFLEX100 MG PO; +OXYCODONE HCL 55 MG PO; +PAIN RELIEVER500 MG PO; +VITAMIN D325 MCG PO
[2020-09-15 12:55] VITALS: BP 156/76
[2020-09-15 13:28] LABS: ABSOLUTE EOSINOPHILS 0.1 thou/uL (0.0-0.7); ABSOLUTE LYMPHOCYTES 0.9 thou/uL (0.8-5.3); ABSOLUTE MONOCYTES 0.5 thou/uL (0.0-1.2); ABSOLUTE NEUTROPHILS 3.3 thou/uL (1.6-8.1); BASOPHILS 0.8 %; EOSINOPHILS 1.6 %; HEMOGLOBIN 10.3 gm/dL (12.0-15.0); LYMPHOCYTES 18.6 %; MCH 22.5 pg (26.0-34.0); MCHC 31.2 g/dL (28.0-37.0); MCV 72.3 fL (80.0-100.0); MONOCYTES 10.7 %; MPV 6.8 fl. (7.2-11.1); NUCLEATED RBCS 0 /100WBC; PLATELET COUNT* 352 thou/uL (150-400); POLYS 68.3 %; RBC 4.56 mil/uL (4.20-5.00); WBC 4.9 thou/uL (4.0-11.0)
[2020-09-15 13:34] LABS: CALCIUM 9.3 mg/dL (8.5-10.1)
[2020-09-15 13:37] LABS: APTT 28.6 Seconds (25.0-31.3); INR 1.1; PROTIME 11.2 Seconds (9.20-11.50)
[2020-09-15 13:45] LABS: ALBUMIN 3.7 g/dL (3.4-5.0); TOTAL BILIRUBIN 0.5 mg/dL (<0.1-1.0); TOTAL PROTEIN 7.4 g/dL (6.4-8.2)
[2020-09-15 14:10] LABS: ANISOCYTOSIS 1+; HYPOCHROMASIA 1+; MICROCYTES 1+; PLATELET ESTIMATE ADEQUATE
--- NOTE | 2020-09-15 15:16 | EKG ---
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
[2020-09-15 16:36] VITALS: BP 145/76
--- NOTE | 2020-09-15 17:18 | 2DMMODE ---
[place] [address] 2 D/M-MODE ECHOCARDIOGRAM Name: JANIALFREDITO MCCLAIN Jimmy Room: [address] IN .R.#: [id number] Admission: 09/15/20 Attend Phys: Vale Berg, Discharge: Date of : 43 Date of Service: 09/15/20 1718 Report #: [id number] THIS REPORT FOR: cc: Sandy Yanez MD, Pamela MD Holkins,Vickey Goldsmith MD [facility] ~ APPROVED REPORT Study performed: 09/15/2020 16:17:38 EXAM: Comprehensive 2D, Doppler, and color-flow Echocardiogram Patient Location: In-Patient Room #: ER Status: routine BSA: 2.08 HR: 82 bpm BP: 141/65 mmHg Rhythm: NSR Other Information Study Quality: Good Indications Congestive Heart Failure 2D Dimensions IVSd: 13.33 (7-11mm) LVOT Diam: 21.65 (18-24mm) LVDd: 45.11 mm PWd: 11.32 (7-11mm) Ascending Ao: 35.89 (22-36mm) LVDs: 28.92 (25-40mm) Aortic Root: 35.10 mm Volumes Left Atrial Volume (Systole) LA ESV Index: 58.20 mL/m2 Aortic Valve AoV Peak Yannick.: 1.83 m/s AO Peak Gr.: 13.33 mmHg LVOT Max P.02 mmHg AO Mean Gr.: 7.60 mmHg LVOT Mean P.19 mmHg LVOT Max V: 1.00 m/s AO V2 VTI: 37.22 cm LVOT Mean V: 0.69 m/s BARBARA (VTI): 2.37 cm2 LVOT V1 VTI: 23.97 [place] [address] 2 D/M-MODE ECHOCARDIOGRAM Name: ALFREDITO CARR Room: [address] IN ..#: [id number] Admission: 09/15/20 Attend Phys: Vale Berg, Discharge: Date of : 43 Date of Service: 09/15/20 1718 Report #: [id number] TDI Lateral E' Yannick.: 0.15 m/s Pulmonary Valve PV Peak Yannick.: 0.99 m/s PV Peak Gr.: 3.95 mmHg Tricuspid Valve RAP Estimate: 5.00 mmHg TR Peak Gr.: 45.66 mmHg RVSP: 50.00 mmHg PA Pressure: 50.00 mmHg Left Ventricle The left ventricle is normal size. There is normal LV segmental wall motion. There is normal left ventricular wall thickness. Left ventricular systolic function is normal. The left ventricular ejection fraction is within the normal range. LVEF is 60%. This study is not technically sufficient to allow evaluation of the LV diastolic function due to atrial fibrillation. Right Ventricle The right ventricle is normal size. The right ventricular systolic function is normal. Atria Left atrium is moderately dilated. The right atrium size is normal. Aortic Valve Mild aortic valve sclerosis. No aortic regurgitation is present. No hemodynamically significant valvular aortic stenosis. Mitral Valve Mild mitral annular calcification. Mild mitral regurgitation. No evidence of mitral valve stenosis. Tricuspid Valve The tricuspid valve is normal in structure. Mild tricuspid regurgitation. Moderate pulmonary hypertension. Pulmonic Valve The pulmonary valve is normal in structure. Mild pulmonic regurgitation. Great Vessels The aortic root is normal in size. IVC is normal in size and collapses >50% [place] [address] 2 D/M-MODE ECHOCARDIOGRAM Name: ALFREDITO CARR Room: [address]#: [id number] Admission: 09/15/20 Attend Phys: Vale Berg, Discharge: Date of : 43 Date of Service: 09/15/20 1718 Report #: [id number] Pericardium There is no pericardial effusion. <Conclusion> The left ventricle is normal size. There is normal left ventricular wall thickness. Left ventricular systolic function is normal. The left ventricular ejection fraction is within the normal range. LVEF is 60%. This study is not technically sufficient to allow evaluation of the LV diastolic function due to atrial fibrillation. The right ventricle is normal size. Left atrium is moderately dilated. The right atrium size is normal. Mild aortic valve sclerosis. No aortic regurgitation is present. No hemodynamically significant valvular aortic stenosis. Mild mitral annular calcification. Mild mitral regurgitation. The tricuspid valve is normal in structure. Mild tricuspid regurgitation. Moderate pulmonary hypertension. IVC is normal in size and collapses >50% with inspiration. There is no pericardial effusion. There is normal LV segmental wall motion. <ELECTRONICALLY SIGNED> By: Vickey Carr MD, FACC 09/15/208 17 17 Vickey Carr MD, FACC /INF
[2020-09-15 18:17] VITALS: BP 161/76
[2020-09-15 20:00] VITALS: BP 166/54
[2020-09-16 00:38] VITALS: BP 140/50
[2020-09-16 04:06] VITALS: BP 148/63
[2020-09-16 08:00] VITALS: BP 145/79
[2020-09-16 08:40] LABS: HEMATOCRIT 31.6 % (37.0-47.0); HEMOGLOBIN 9.8 gm/dL (12.0-15.0); MCH 22.3 pg (26.0-34.0); MCV 71.8 fL (80.0-100.0); MPV 7.1 fl. (7.2-11.1); RBC 4.41 mil/uL (4.20-5.00); RDW-CV 19.6 % (10.5-14.5); WBC 2.2 thou/uL (4.0-11.0)
[2020-09-16 09:05] LABS: ALBUMIN 3.6 g/dL (3.4-5.0); CALCIUM 8.7 mg/dL (8.5-10.1); CREATININE 0.9 mg/dL (0.6-1.3); MAGNESIUM 1.8 mg/dL (1.8-2.4); POTASSIUM 3.4 mmol/L (3.5-5.1); TOTAL BILIRUBIN 0.5 mg/dL (<0.1-1.0); TOTAL PROTEIN 7.2 g/dL (6.4-8.2)
[2020-09-16 12:00] VITALS: BP 119/59
[2020-09-16 16:00] VITALS: BP 119/63
[2020-09-16 21:00] VITALS: BP 134/71
[2020-09-17] VITALS: BP 140/76
[2020-09-17 04:51] VITALS: BP 134/77
[2020-09-17 06:22] LABS: HEMATOCRIT 28.9 % (37.0-47.0); HEMOGLOBIN 9.1 gm/dL (12.0-15.0); MCH 23.1 pg (26.0-34.0); MCHC 31.4 g/dL (28.0-37.0); MCV 73.6 fL (80.0-100.0); RBC 3.93 mil/uL (4.20-5.00); RDW-CV 19.2 % (10.5-14.5); WBC 6.7 thou/uL (4.0-11.0)
[2020-09-17 06:31] LABS: CREATININE 0.8 mg/dL (0.6-1.3); MAGNESIUM 1.8 mg/dL (1.8-2.4); POTASSIUM 3.6 mmol/L (3.5-5.1)
[2020-09-17 08:00] VITALS: BP 136/68
[2020-09-17] MEDS ORDERED: DILTIAZEM 24HR180 M1 PO (08:37)
[2020-09-17] MEDS ORDERED: REQUIP 0.25 M0.25 MG PO (08:37)
[2020-09-17] MEDS ORDERED: LEVOFLOXACIN500 MG PO (08:37)
[2020-09-17] MEDS ORDERED: GLUCOPHAGE500 MG PO (08:37)
[2020-09-17] MEDS ORDERED: SINEMET 10-1001 EAC1 PO (08:37)
[2020-09-17] MEDS ORDERED: LASIX 40 MG TAB40 M1 PO (09:56)
[2020-09-17 11:23] VITALS: BP 136/68
[2020-09-17 12:00] VITALS: BP 139/76
== END 2020-09-17 16:19 | disposition home or self-care (01) | DRG 177 ==
LOC: M.ERS 12:48 → M.TBA-ER 14:56 → M.2W 14:56
PROVIDERS: Family Medicine; ADMIT Internal Medicine; ATTEND Internal Medicine
DX: J15.6 Pneumonia due to other Gram-negative bacteria (principal); J96.01 Acute respiratory failure with hypoxia; I50.33 Acute on chronic diastolic (congestive) heart failure; I48.20 Chronic atrial fibrillation, unspecified; D68.69 Other thrombophilia; G25.81 Restless legs syndrome; I11.0 Hypertensive heart disease with heart failure; M81.0 Age-related osteoporosis without current pathological fracture; E78.5 Hyperlipidemia, unspecified; I48.0 Paroxysmal atrial fibrillation; E11.65 Type 2 diabetes mellitus with hyperglycemia; I27.20 Pulmonary hypertension, unspecified; Z20.822 Contact with and (suspected) exposure to COVID-19; Z79.01 Long term (current) use of anticoagulants; Z79.899 Other long term (current) drug therapy

== ENCOUNTER 2020-10-23 16:07 | Emergency (ER) | payer MEDICARE ==
[~2020-10-23] VITALS: Ht 170.2 cm; Wt 84.8 kg
[~2020-10-23 16:07] MED LIST changes: +DILTIAZEM 24HR180 M1 PO; +GLUCOPHAGE500 MG PO; +LASIX 40 MG TAB40 M1 PO; +LEVOFLOXACIN500 MG PO; +SINEMET 10-1001 EAC1 PO
[2020-10-23 17:07] LABS: CALCIUM 9.4 mg/dL (8.5-10.1); CREATININE 0.9 mg/dL (0.6-1.3); POTASSIUM 3.6 mmol/L (3.5-5.1)
[2020-10-23] MEDS ORDERED: FLEXERIL PO (17:49)
[2020-10-23] MEDS ORDERED: DIPHENHIST50 MG PO (17:49)
[2020-10-23 18:01] VITALS: BP 171/75
== END 2020-10-23 18:03 | disposition home or self-care (01) ==
LOC: M.ERS 16:07
PROVIDERS: Emergency Medicine Emergency Medical Services
DX: G25.81 Restless legs syndrome (principal); I10 Essential (primary) hypertension; I48.91 Unspecified atrial fibrillation

== ENCOUNTER → 2021-07-23 | Outpatient (CLI) | payer MEDICARE ==
[~2021-07-23] MED LIST changes: +DIPHENHIST50 MG PO
--- NOTE | 2021-07-23 10:46 | 2DMMODE ---
[place] [address] 2 D/M-MODE ECHOCARDIOGRAM Name: ALFREDITO CARR Room: [facility]#: [id number] Admission: 07/23/21 Attend Phys: Alena Valdez RN Discharge: Date of : 43 Date of Service: 07/23/21 1045 Report #: [id number] THIS REPORT FOR: cc: Sandy Yanez MD, Pamela MD Blick, David R. MD [facility] ~ APPROVED REPORT Study performed: 07/23/2021 10:51:34 EXAM: Comprehensive 2D, Doppler, and color-flow Echocardiogram Patient Location: Out-Patient BSA: 1.96 HR: 59 bpm BP: 135/72 mmHg Rhythm: Atrial Fibrillation Other Information Study Quality: Good Indications Murmur 2D Dimensions IVSd: 13.31 (7-11mm) LVOT Diam: 20.36 (18-24mm) LVDd: 44.13 mm PWd: 10.46 (7-11mm) Ascending Ao: 30.54 (22-36mm) LVDs: 30.70 (25-40mm) Aortic Root: 32.69 mm Volumes Left Atrial Volume (Systole) LA ESV Index: 38.90 mL/m2 Aortic Valve AoV Peak Yannick.: 1.98 m/s AO Peak Gr.: 15.75 mmHg LVOT Max P.00 mmHg AO Mean Gr.: 8.78 mmHg LVOT Mean P.50 mmHg LVOT Max V: 1.12 m/s AO V2 VTI: 36.91 cm LVOT Mean V: 0.73 m/s BARBARA (VTI): 2.28 cm2 LVOT V1 VTI: 25.88 [place] [address] 2 D/M-MODE ECHOCARDIOGRAM Name: ALFREDITO CARR Room: [facility]#: [id number] Admission: 07/23/21 Attend Phys: Alena Valdez RN Discharge: Date of : 43 Date of Service: 07/23/21 1045 Report #: [id number] MV Decel. Time: 190.62 ms MV E Max Yannick.: 1.13 m/s MV PHT: 55.28 ms MVA (PHT): 3.98 cm2 TDI E/Lateral E': 8.69 E/Medial E': 7.53 Medial E' Yannick.: 0.15 m/s Lateral E' Yannick.: 0.13 m/s Pulmonary Valve PV Peak Yannick.: 0.90 m/s PV Peak Gr.: 3.25 mmHg Tricuspid Valve RAP Estimate: 5.00 mmHg TR Peak Gr.: 49.87 mmHg RVSP: 54.87 mmHg PA Pressure: 54.87 mmHg Left Ventricle The left ventricle is normal size. There is normal LV segmental wall motion. There is normal left ventricular wall thickness. Left ventricular systolic function is normal. The left ventricular ejection fraction is within the normal range. LVEF is 60-65%. This study is not technically sufficient to allow evaluation of the LV diastolic function due to atrial fibrillation. Right Ventricle The right ventricle is normal size. The right ventricular systolic function is normal. Atria Left atrium is mildly dilated. The right atrium size is normal. Aortic Valve Mild aortic valve sclerosis. No aortic regurgitation is present. There is no aortic valvular stenosis. Mitral Valve Mild mitral annular calcification. The mitral valve is normal in structure. Mild mitral regurgitation. No evidence of mitral valve stenosis. Tricuspid Valve The tricuspid valve is normal in structure. Moderate tricuspid regurgitation. estimated pa pressure 55 [place] [address] 2 D/M-MODE ECHOCARDIOGRAM Name: ALFREDITO CARR Room: [facility]#: [id number] Admission: 07/23/21 Attend Phys: Alena Valdez RN Discharge: Date of : 43 Date of Service: 07/23/21 1045 Report #: [id number] Pulmonic Valve The pulmonary valve is normal in structure. Mild pulmonic regurgitation. Great Vessels The aortic root is normal in size. IVC is normal in size and collapses >50% with inspiration. Pericardium There is no pericardial effusion. <Conclusion> LVEF is 60-65%. Left atrium is mildly dilated. Mild aortic valve sclerosis. Mild mitral regurgitation. Moderate tricuspid regurgitation. estimated pa pressure 55 mm Hg <ELECTRONICALLY SIGNED> By: Rodger Pond MD, FACC 07/23/21 1045 1045 1045 Rodger Pond MD, FACC /INF
== END ==
LOC: M.CRD 09:19
PROVIDERS: ATTEND Registered Nurse
DX: I08.8 Other rheumatic multiple valve diseases (principal); R01.1 Cardiac murmur, unspecified